=== PATIENT | female | born 1995 | race Caucasian/White ===

== ENCOUNTER 2019-05-24 20:53 | Emergency (ER) | payer OTHER ==
[~2019-05-24] VITALS: Ht 165.1 cm; Wt 53.5 kg
[2019-05-24 21:03] VITALS: BP 113/50; Ht 165.1 cm; Wt 53.5 kg
== END 2019-05-24 21:50 | disposition home or self-care (01) ==
LOC: ED 20:53
DX: M23.92 Unspecified internal derangement of left knee (principal); Z88.8 Allergy status to other drugs, medicaments and biological substances

== ENCOUNTER 2020-01-14 22:29 | Emergency (ER) | payer OTHER ==
[~2020-01-14] VITALS: Ht 165.1 cm; Wt 50.8 kg
[2020-01-14 22:42] VITALS: BP 106/67; Ht 165.1 cm; Wt 50.8 kg
== END 2020-01-15 | disposition home or self-care (01) ==
LOC: ED 22:29
DX: B00.2 Herpesviral gingivostomatitis and pharyngotonsillitis (principal); Z88.8 Allergy status to other drugs, medicaments and biological substances
CPT/HCPCS: J2270; Q0163